=== PATIENT | male | born 1985 | race Caucasian/White ===

== ENCOUNTER 2021-03-31 08:12 | Emergency (ER) | payer OTHER, BC ==
[~2021-03-31] VITALS: Ht 177.8 cm; Wt 95.2 kg
== END 2021-03-31 12:09 | disposition home or self-care (01) ==
LOC: ER 08:12
DX: S46.212A Strain of muscle, fascia and tendon of other parts of biceps, left arm, initial encounter (principal); I10 Essential (primary) hypertension; Z88.8 Allergy status to other drugs, medicaments and biological substances; X50.0XXA Overexertion from strenuous movement or load, initial encounter
CPT/HCPCS: 76882; 99283-25